=== PATIENT | female | born 1985 | race Two or more races ===

== ENCOUNTER 2018-07-10 15:00 | Inpatient (IN) | payer OTHER ==
[~2018-07-10] VITALS: Ht 165.1 cm; Wt 111.6 kg
[2018-07-29] MEDS ORDERED: PRENATAL TABLE1 EAC1 PO (23:44)
== END 2018-07-31 12:47 | DRG 807 ==
LOC: SURG-SUITE 07-29 21:16 → LDR 07-29 21:16 → SURG-SUITE 07-29 23:55 → RECOVERY 07-30 15:00 → SURG-SUITE 07-31 12:47
PROC: 10E0XZZ Delivery of Products of Conception, External Approach (ICD-10-PCS; principal; 2018-07-29)
PROC: 10907ZC Drainage of Amniotic Fluid, Therapeutic from Products of Conception, Via Natural or Artificial Opening (ICD-10-PCS; 2018-07-29)
PROC: 4A1HXCZ Monitoring of Products of Conception, Cardiac Rate, External Approach (ICD-10-PCS; 2018-07-29)
DX: O80 Encounter for full-term uncomplicated delivery (principal); Z37.0 Single live birth; Z3A.39 39 weeks gestation of pregnancy